=== PATIENT | male | born 1965 | race Caucasian/White ===

== ENCOUNTER 2016-12-23 13:02 | Inpatient (IN) | payer OTHER ==
[~2016-12-23] VITALS: Ht 167.6 cm; Wt 75.8 kg
[2016-12-23] VITALS (9 sets, daily range): BP systolic 132–176; BP diastolic 68–106; PULSE 78–101; RESP 14–18; O2SAT 93–98
[~2016-12-23 13:02] MED LIST: ATRV10T PO; IBUP-1827 PO; OMEP20CA11 PO; TRAZ-115 PO; VENL25TA4 PO
[2016-12-23] MEDS ORDERED: Multivit-Miner-Folic Acid-Iron Tablet PO SCH (13:35)
[2016-12-23] MEDS ORDERED: Multivitamin w/Vit K Inj 10 ML, Thiamine Inj 100 MG, Folic Acid Inj 1 MG, Magnesium Sul... IV ONE ×5 (14:19)
[2016-12-23] MEDS ORDERED: Ondansetron 2 mg/mL 2 mL Inj IVPUSH ONE (14:20)
--- NOTE | 2016-12-23 15:19 | ED.REPORT ---
HPI-Overdose/Alcohol Toxicity Date of Service Dec 23, 2016 ED Provider: Shyam Conroy MD 51 year old male with a history of alcoholism and withdrawal seizures presents to the ER due to alcohol withdrawal. Associated symptoms include shaking chills and visual hallucinations. He typically drinks about 750mL of hard alcohol daily. Last drink was 14-15 hours ago. Patient has been hospitalized for alcohol withdrawal in the past. Nursing Notes Stated Complaint: alcohol withdrawals Chief Complaint: Substance Abuse Nursing Notes Reviewed: Yes Allergies: Coded Allergies: latex (Verified Allergy, Unknown, 12/23/16) lisinopril (Verified Allergy, Unknown, 12/23/16) No Active Prescriptions or Reported Meds General Time Seen by Provider: 14:35 Chief Complaint Other (Alcohol Withdrawal) Hx Obtained From: Patient Arrived By: Walk-in Onset Occurred: Just prior to arrival Symptom Duration: Since onset Associated with: Reports: Sweating Additional Notes: Shaking chills Related History: Reports: Alcoholism, EtOH withdrawal Similar Sx Previous: Yes Risk-Overdose/Alcohol Tox )( Suicide Risk Stratification : Alcohol use RF Statements: Risk factors reviewed Past Medical History Past Medical History Notes: [facility] Past Medical History Shoulder fracture (left) [place] lesion (right) high cholesterol abdominal injuries denies history of stroke Reports: Hypertension Past Surgical History tracheotomy Family History family history of stroke Smoking History Never Smoker Social History Alcohol Use: >5 per day Ambulatory Status Independent Review of Systems Constitutional: Reports: Chills, Denies: Fever Respiratory: Denies: Non-productive cough, Shortness of breath Cardiovascular: Denies: Chest pain GI: Reports: Nausea, Denies: Constipation, Diarrhea, Hematemesis, Hematochezia Skin: Reports Diaphoresis Neurologic: Reports: Shaking Psychiatric: Reports: Hallucinations, visual Complete sys rev & neg: except as marked. Physical Exam Initial Vital Signs Vital Signs (First) Date Time Temp Pulse Resp B/P Pulse Ox O2 Delivery O2 Flow Rate FiO2 12/23/16 13:05 36.7 101 16 176/103 97 Room Air Initial VS: Reviewed Head / Eyes: Atraumatic, Normocephalic, PERRL Neck: Supple, Non-tender, Full range of motion Extremities: Vascular intact, Neuro intact, No swelling, No tenderness General/Constitutional: Awake, Alert, Well developed, Well nourished Respiratory / Chest: Atraumatic, Breath sounds NL, Breath sounds = bilat, No respiratory distress, No rales, No rhonchi, No wheezing Cardiovascular: Regular rhythm, Heart sounds NL, No murmurs Heart Rate / Rhythm: Positive: Tachycardia Neurologic: Oriented X3, Speech NL, No sensory deficits Fine tremor bilaterally. Psychiatric: Affect NL, Mood NL, Cognitive function NL, Thought content NL Interpretation & Diagnostics Lab Results Interpretation Result Diagram: 12/23/16 1331 12/23/16 1331 Test 12/23/16 13:31 White Blood Count 9.0th/mm3 (3.8-10.1) Red Blood Count 4.55mil/mm3 (4.40-5.80) Hemoglobin 13.9g/dL (13.8-17.2) Hematocrit 40.7% (41.0-50.0) Mean Corpuscular Volume 89.5fL (81-100) Mean Corpuscular Hemoglobin 30.5pg (27.0-35.0) Mean Corpuscular Hemoglobin Concent 34.2% (32.0-37.0) Red Cell Distribution Width 15.1% (12.3-15.4) Platelet Count 213bil/L (150-400) Neutrophils (%) (Auto) 77.3% (40-74) Lymphocytes (%) (Auto) 14.4% (14-46) Monocytes (%) (Auto) 7.9% (4-12) Eosinophils (%) (Auto) 0% (0-5) Basophils (%) (Auto) 0.3% (0-3) Hold Purple Top Tube Received (Received) Prothrombin Time 10.3sec (8.1-12.5) Prothromb Time International Ratio 0.96ratio Hold Blue Top Tube Received (Received) Sodium Level 138mEq/L (134-144) Potassium Level 3.7mEq/L (3.5-5.2) Chloride Level 93mEq/L (97-108) Carbon Dioxide Level 24mmol/L (18-29) Blood Urea Nitrogen 12mg/dL (6-24) Creatinine 0.71mg/dL (0.76-1.27) Estimat Glomerular Filtration Rate 123mL/min (>59) Glucose Level 149mg/dL (60-99) Calcium Level 8.9mg/dL (8.5-10.1) Total Bilirubin 1.5mg/dL (0.0-1.2) Aspartate Amino Transf (AST/SGOT) 61U/L (0-50) Alanine Aminotransferase (ALT/SGPT) 33U/L (0-44) Alkaline Phosphatase 73U/L (25-150) Total Protein 7.7g/dL (6.4-8.4) Albumin 4.7g/dL (3.4-5.0) Hold [place] Top Tube Received (Received) Hold [place] Top Tube Received (Received) Re-Eval/Medical Decision Med Decision/Clinical Course 51-year-old male along history of alcohol abuse presenting with alcohol control. Last drink 15 hours ago. Normally drinks 1/5 liquor per day. History of withdrawal seizures. Significantly tremulous on exam improved with 20 mg Valium. Admitted for alcohol withdrawal. Re-Evaluation/Progress : Time of Eval: 15:23 Re-Evaluation/Progress Note: Discussed need for admission. Patient is amenable to the plan. All other questions addressed. Code Status: Full Code Consultation : Referral / Consult Name: Holden Rae MD Consulted With: Hospitalist Call Returned at: 16:39 Finish Production Manager: Agrees with eval, Agrees with plan, Accepts admit Counseled Regarding: Diagnosis, Lab results, Need for admission Discharge & Departure Impression: Primary Impression: Alcohol withdrawal )( Condition at Discharge: No danger to self, No danger to others, No suicidal ideation, No homicidal ideation Disposition: ADMITTED TO HOSPITAL Discharge Condition All VS Reviewed: Yes Condition: Stable Referrals: [facility] (PCP) Aleisha Attestation Portions of this note were transcribed by Lenin Klein. I, Dr. Conroy, personally performed the history, physical exam and medical decision-making; I reviewed and confirmed the accuracy of the information in the transcribed note. Signed by: Aleisha Costello, 12/23/2016 and 16:47 copies to: [facility] Shyam Conroy MD Dec 23, 2016 15:19 LENIN KLEIN Dec 23, 2016 15:28
[2016-12-23 15:48] LABS: BASOPHILS % (AUTO) 0.3 % (0-3); EOSINOPHILS % (AUTO) 0 % (0-5); MONOCYTES % (AUTO) 7.9 % (4-12); Mean Corpuscular Hemoglobin 30.5 pg (27.0-35.0); Mean Corpuscular Volume 89.5 fL (81-100); NEUTROPHILS % (AUTO) 77.3 % (40-74); Platelet Count 213 bil/L (150-400)
[2016-12-23 15:50] LABS: INR 0.96 ratio
[2016-12-23] MEDS ORDERED: Alum-Mag Hydrox-Simeth 30 mL Suspension PO PRN ×2 (16:45→17:55)
[2016-12-23] MEDS ORDERED: Ondansetron 2 mg/mL 2 mL Inj IVPUSH PRN ×2 (16:45→17:55)
[2016-12-23] MEDS ORDERED: Polyethylene Glycol (PEG) 17 Gm Powder PO PRN (17:55)
--- NOTE | 2016-12-23 18:09 | PCM.HPMED ---
Subjective Date of Service Dec 23, 2016 Primary Provider: Admitting Physician: [facility]: Chief Complaint: Alcohol withdrawal History of Present Illness: Patient is a 51 year old male with a history of depression, PTSD, GERD, and alcohol use disorder. He presented to [facility] on [facility]16 with the desire to go through alcohol withdrawal. He reports that he drinks a fifth of rum daily. The current episode has been ongoing for three months. Prior to that he had been sober for one and a half years. His longest period of sobriety is 4 years. He does have a history of seizures with alcohol withdrawal. He would like to go through withdrawal at this time as he is preparing to have shoulder surgery done with Dr. Monsivais. He would like his recovery from surgery to go as smoothly as possible. The patient reports having had some cold/flu like symptoms over the last week including productive cough and nasal congestion. He reports periods of fever, chills and sweats. He endorses tremors/shakes, nausea, dry heaves and constipation. He denies diarrhea, dysuria, hematuria, shortness of breath or chest pain. In the ED the patient was afebrile with a heart rate of 101, respiratory rate of 16, blood pressure of 176/103, and O2 saturation of 97% on room air. labs were remarkable for bilirubin 1.5, AST of 61. He received diazepam, a banana bag, and thiamine in the ED. Patient to be admitted for management of alcohol withdrawal. Review of Systems: A comprehensive review of systems was conducted with the patient and found to be negative except as above in the history of present illness. Allergies Coded Allergies: latex (Verified Allergy, Unknown, 12/23/16) lisinopril (Verified Allergy, Unknown, 12/23/16) Home Medications Unable to correctly verify with patient: Atorvastatin 10 mg HS Ibuprofen 600 mg QID PRN Omeprazole 20 mg daily Trazodone 50 mg HS Venlafaxine 25 mg BID PMH Depression PTSD GERD History of pancreatitis secondary to trauma Surgical History Appendectomy Splenectomy secondary to trauma (1997) Abdominal trauma repair Family History Alcoholism on both sides of his family Father with coronary artery disease with stents placed x 4 Social History Hx Alcohol Use: Yes (1/5 of rum daily) Hx Substance Use: No Hx Tobacco Use: No Smoking Status: Never Smoker Exam Vital Signs Vital Sign - Last Date Time Temp Pulse Resp B/P Pulse Ox O2 Delivery O2 Flow Rate FiO2 12/23/16 17:15 88 17 137/81 94 Room Air 12/23/16 13:05 36.7 Exam Alert and oriented x3, no acute distress Head atraumatic, normocephalic PERRLA, EOMI, sclera anicteric Mucus membranes moist, no oral thrush observed No cervical lymphadenopathy, neck supple, nontender No JVD noted Cardiac tones regular rate and rhythm with no murmur appreciated Lungs clear to auscultation bilaterally with adequate respiratory effort Mild suprapubic abdominal tenderness, non-distended, normoactive bowel tones, soft Hurd absent Radial pulses normal and equivalent bilaterally, dorsalis pedis pulses normal and equivalent bilaterally No cyanosis, clubbing or edema No ulcerations/open wounds Cranial nerves appear to be fully intact, normal speech, patient can move upper and lower limbs grossly Lab and Diagnostics Result Diagram: 12/23/16 1331 12/23/16 1331 Assessment & Plan Patient is a 51 year old male with a history of depression, PTSD, GERD, and alcohol use disorder. He presented to [facility] on 12/23/16 with the desire to go through alcohol withdrawal. Patient admitted for management of alcohol withdrawal and monitoring for seizures. 1. Alcohol use disorder to undergo withdrawal, acute, present on admission. - CIWA protocol ordered. - Diazepam available IV push as needed based on CIWA score. - Thiamine ordered 100 mg daily. - Multivitamin ordered daily. - Seizure and fall precautions to be in place. 2. Abnormal LFT's, acute, present on admission. - Possibly secondary to alcoholic liver disease. - Will continue to follow BMP. 3. GERD, chronic, presume stable. - Continue PPI. 4. Depression/PTSD, chronic, presume stable. - Uncertain of his medication regimen. Needs to be verified with pharmacy. 5. Medication reconciliation: - Patient cannot verify doses of medication. Needs to be verified with PCP or pharmacy. - Antacid available PRN. - Antiemetic available PRN. - Bowel regimen available PRN. Patient admitted under inpatient status with expected length of stay greater than 2 midnights for severity of present symptoms, complexities of treatment plan and risk for adverse events. GI Prophylaxis: Proton Pump Inhibitor VTE Prophylaxis: Sub-Q Enoxaparin Resuscitation Status: CPR: Attempt Resuscitation Attending Statement The patient was seen and examined together with Dr. Landers on 12-23-16 and I agree with the history, exam and plan as outlined in the note above. copies to: Rachel Quijano MD, Jennifer E DO Dec 23, 2016 18:09 Sheyla Blank MD Dec 24, 2016 07:08
[2016-12-23] MEDS ORDERED: 0.9% Sodium Chloride 1,000 ML IV SCH (18:20)
[2016-12-23 20:13] LABS: APPEARANCE,URINE SLIGHTLY CLOUDY (CLEAR,HAZY); COLOR,URINE DARK YELLOW (YELLOW)
[2016-12-23 20:14] LABS: OCCULT BLOOD,URINE NEGATIVE (NEGATIVE); PH,URINE 8.5 (5.0-8.0); UROBILINOGEN,URINE NORMAL (NORMAL)
[2016-12-24] VITALS (7 sets, daily range): BP systolic 132–160; BP diastolic 87–103; PULSE 74–87; RESP 18; O2SAT 97–99
--- NOTE | 2016-12-24 06:30 | NUR ---
Admission note Pt arrived from ER to [id number] approx. at 195 as PCC status due to ETOH withdrawal management. Admission assessment and screening completed. VSS. CIWA score = 6. Valium given. No overt complications noted.
[2016-12-24 07:52] LABS: BASOPHILS % (AUTO) 0.4 % (0-3); EOSINOPHILS % (AUTO) 1.7 % (0-5); Mean Corpuscular Hemoglobin 31.4 pg (27.0-35.0); Mean Corpuscular Volume 91.4 fL (81-100); NEUTROPHILS % (AUTO) 57.6 % (40-74); Platelet Count 175 bil/L (150-400)
[2016-12-24] MEDS: Multivit-Miner-Folic Acid-Iron Tablet PO SCH (07:59)
[2016-12-24] MEDS: Pantoprazole 20 mg ER24 Tablet PO SCH (07:59)
[2016-12-24] MEDS: cloNIDine 0.1 mg Tablet PO SCH ×2 (09:58→21:40)
[2016-12-24] MEDS: chlordiazePOXIDE 25 mg Capsule PO SCH ×3 (09:58→21:40)
--- NOTE | 2016-12-24 13:16 | NUR ---
Social Work-screening/chemical dependency: Data:EMR reviewed. Pt is a 51 y/o male who was admitted on 12/23/16 for ETOH withdrawal per H&P. Pt's insurance is [employer] and PCP is He. Pt's readmission score is 3- high risk. SW met with pt at bedside to discuss discharge planning and discuss CD resources. Pt informs SW that he has been living the [facility] for a while on a voucher from [employer]. Pt states has been homeless for about a year. Pt states he has been enrolled in mental health and CD services through [employer] in the past and [employer] Manages his medications. Pt currently denies any suicidal thoughts or actions. Pt plans on returning back to the [facility] at discharge. SW discussed DPOA/ advanced directive with pt, pt states he would be interested in the paperwork and has not completed this before. SW provided pt with the information. SW discussed seeing CDP Sherin from [facility] and pt is agreeable, ABDOULAYE signed and placed in chart. SW called Sherin and left message requesting she meet with pt. SW provided phone number and plan on white board in room. SW will continue to follow. Assessment:Pt who is independent at baseline. Plan:Pt to discharge back to [facility] when medically stable via POV. Pt has signed ABDOULAYE to meet with Sherin from [facility]. SW will continue to follow. SHMUEL Virk
--- NOTE | 2016-12-24 13:59 | PCM.PNMED ---
Subjective Date of Service Dec 24, 2016 Subjective Patient apparently without reports of chest pain, dyspnea, nausea or vomiting I walked in and tried to wake the patient twice and he was somnolent Exam Vital Signs Vital Sign - Last Date Time Temp Pulse Resp B/P Pulse Ox O2 Delivery O2 Flow Rate FiO2 12/24/16 13:37 36.5 85 18 138/91 97 Room Air Intake and Output 12/23/16 12/23/16 12/24/16 Cumulative From/Thru 15:00 23:00 07:00 12/23/16 13:05 - 12/24/16 06:36 Intake Total 1000 ml 2000 ml 3000 ml Output Total 500 ml 500 ml Balance 1000 ml 1500 ml 2500 ml Intake Oral 1000 ml 1000 ml IV Total 1000 ml 1000 ml 2000 ml Output Urine Total 500 ml 500 ml Exam Gen.: Patient sleeping no acute distress Head: atraumatic, normocephalic Eyes : Closed, normal eyelids, no discharge noted Neck: Trachea midline Cardiac: Normal rate Lungs: Normal rate, no accessory muscle usage abd: Flat Musc- no deformity Skin: Warm/dry no lesions Neurologic :Cranial nerves intact to gross examination, nonfocal Psych: Patient sleeping Lab and Diagnostics Result Diagram: 12/24/1671412/24/16714 Assessment & Plan Patient is a 51 year old male with a history of depression, PTSD, GERD, and alcohol use disorder. He presented to [facility] on 12/23/16 with the desire to go through alcohol withdrawal so we can have shoulder surgery. Patient admitted for management of alcohol withdrawal and monitoring for seizures. #HTN-starting clonidine 12/24 #Eye drainage-reported by nurse I was not did not see any in patient did not rouse and I was unable to examine fully need follow-up #Alcohol use disorder to undergo withdrawal, acute, present on admission. - CIWA protocol ordered. - Diazepam available IV push as needed based on CIWA score. - Thiamine ordered 100 mg daily. - Multivitamin ordered daily. - Seizure and fall precautions to be in place. -Scheduled Librium ordered as patient got greater than 40 mg of diazepam between midnight and 8 AM and reportedly drinks a fifth of rum per day so significant withdrawal was expected. #Abnormal LFT's, acute, present on admission. - Possibly secondary to alcoholic liver disease. - Will continue to follow BMP. #GERD, chronic, presume stable. - Continue PPI. #Depression/PTSD, chronic, presume stable. - Uncertain of his medication regimen. Needs to be verified with pharmacy. #Medication reconciliation: - Patient cannot verify doses of medication. Needs to be verified with PCP or pharmacy. - Antacid available PRN. - Antiemetic available PRN. - Bowel regimen available PRN. Patient admitted under inpatient status with expected length of stay greater than 2 midnights for severity of present symptoms, complexities of treatment plan and risk for adverse events. GI Prophylaxis: Proton Pump Inhibitor VTE Prophylaxis: Sub-Q Enoxaparin Resuscitation Status: CPR: Attempt Resuscitation Emmanuel Kimble MD Dec 24, 2016 13:59
--- NOTE | 2016-12-24 17:32 | NUR ---
ETOH W/D management CIWA scores during shift ranging highest 11, average 4-5. patient reporting headache throughout day, mild tremors and periodic sweating. denies visual/auditory hallucinations. Scheduled Librium appears to be effective. patient somnolent most of the day, but is easily arousable with minimal verbal stimuli. during AM assessment patient c/o bilateral eye redness, itching, sticky feeling with discharge and mild crusting to lashes. warm compresses applied as needed throughout day. Dr Kimble notified. no new orders. continue to monitor.
--- NOTE | 2016-12-24 23:45 | NUR ---
Care Transferred CIWA score = 3. VSS. Pt stated Librium is really helping. No overt complications noted. Report given and care transferred to the receiving RN (Bubba Graves)
[2016-12-25] VITALS (8 sets, daily range): BP systolic 113–126; BP diastolic 66–87; PULSE 66–80; RESP 16–18; O2SAT 96
[2016-12-25] MEDS: cloNIDine 0.1 mg Tablet PO SCH ×2 (09:02→19:58)
[2016-12-25] MEDS: chlordiazePOXIDE 25 mg Capsule PO SCH ×3 (09:02→20:39)
[2016-12-25] MEDS: Pantoprazole 20 mg ER24 Tablet PO SCH (09:02)
[2016-12-25] MEDS: Multivit-Miner-Folic Acid-Iron Tablet PO SCH (09:02)
--- NOTE | 2016-12-25 18:15 | NUR ---
CIWA score CIWA score 2 all day today. Only complaints are feeling mildly sweaty, and a mild headache. Pt. has been pleasant and cooperative today. No other issues.
--- NOTE | 2016-12-25 22:42 | PCM.PNMED ---
Subjective Date of Service Dec 25, 2016 Subjective Notified by nursing overnight that [place] with patient earlier in the evening. Patient with intermittent suicidal ideation with plan in place to overdose on narcotics. Patient is not currently suicidal and is working with nursing to sign a no harm contract. Social work consult placed. AM team will need to discuss care with psychiatry prior to discharge. Exam Vital Signs Vital Sign - Last Date Time Temp Pulse Resp B/P Pulse Ox O2 Delivery O2 Flow Rate FiO2 12/25/16 20:37 36.4 80 16 121/83 96 Room Air Intake and Output 12/24/16 12/24/16 12/25/16 Cumulative From/Thru 15:00 23:00 07:00 12/23/16 13:05 - 12/25/16 06:35 Intake Total 2078 ml 1200 ml 6278 ml Output Total 600 ml 925 ml 2025 ml Balance 1478 ml 275 ml 4253 ml Intake Oral 1076 ml 1200 ml 3276 ml IV Total 1002 ml 3002 ml Output Urine Total 600 ml 925 ml 2025 ml # Bowel Movements 1 1 Lab and Diagnostics Result Diagram: 12/24/16 0715 12/24/16 0715 Assessment & Plan Intermittent suicidal ideation, acute -patient to sign no harm contract with nursing -social work consult ordered -no sitter at this time as patient is not actively suicidal -AM team to discuss further management with psychiatry prior to dispo Plan below unchanged and as per day time management team Patient is a 51 year old male with a history of depression, PTSD, GERD, and alcohol use disorder. He presented to [facility] on 12/23/16 with the desire to go through alcohol withdrawal so we can have shoulder surgery. Patient admitted for management of alcohol withdrawal and monitoring for seizures. #HTN-starting clonidine 12/24 #Eye drainage-reported by nurse I was not did not see any in patient did not rouse and I was unable to examine fully need follow-up #Alcohol use disorder to undergo withdrawal, acute, present on admission. - CIWA protocol ordered. - Diazepam available IV push as needed based on CIWA score. - Thiamine ordered 100 mg daily. - Multivitamin ordered daily. - Seizure and fall precautions to be in place. -Scheduled Librium ordered as patient got greater than 40 mg of diazepam between midnight and 8 AM and reportedly drinks a fifth of rum per day so significant withdrawal was expected. #Abnormal LFT's, acute, present on admission. - Possibly secondary to alcoholic liver disease. - Will continue to follow BMP. #GERD, chronic, presume stable. - Continue PPI. #Depression/PTSD, chronic, presume stable. - Uncertain of his medication regimen. Needs to be verified with pharmacy. #Medication reconciliation: - Patient cannot verify doses of medication. Needs to be verified with PCP or pharmacy. - Antacid available PRN. - Antiemetic available PRN. - Bowel regimen available PRN. Patient admitted under inpatient status with expected length of stay greater than 2 midnights for severity of present symptoms, complexities of treatment plan and risk for adverse events. GI Prophylaxis: Proton Pump Inhibitor VTE Prophylaxis: Sub-Q Enoxaparin Resuscitation Status: CPR: Attempt Resuscitation Phyllis Gonzalez DO Dec 25, 2016 22:42
[2016-12-25] MEDS: Artificial Tears 15 mL Ophthalmic Solution LEFT_EYE PRN (22:49)
--- NOTE | 2016-12-25 22:54 | NUR ---
Mentation Patient was in room, meeting with [facility] staff member. This staff member alerted our ORACLE PROGRAMMER ANALYST in the ED that patient reported intermittent suicidal thoughts, has a plan of overdosing, and "was getting his affairs in order". This RN spoke with patient who confirmed intermittent thoughts and plan. Suicidal risk score of 16, requiring Q15 minute checks. Patient denies current thoughts. Patient agreeably signed no-harm contract and agreed to alert staff of any suicidal thoughts. Night MD called with update, put in order for ORACLE PROGRAMMER ANALYST consultation. Did not relay this information to patient. Will frequently monitor. So far, patient has been pleasant, agreeable, and cooperative with staff. CIWA score of 3 for slight headache and mild anxiety at beginning of shift.
[2016-12-26] VITALS (9 sets, daily range): BP systolic 110–130; BP diastolic 72–86; PULSE 45–68; RESP 16–18; O2SAT 96–98
--- NOTE | 2016-12-26 00:02 | PCM.PNMED ---
Subjective Date of Service Dec 25, 2016 Subjective Patient states he is no longer suicidal. He does state that he suffers from PTSD and depression and was placed on Effexor and another medication that really "messed him up". He is feeling okay today with no new complaints. Exam Vital Signs Vital Sign - Last Date Time Temp Pulse Resp B/P Pulse Ox O2 Delivery O2 Flow Rate FiO2 12/25/16 20:37 36.4 80 16 121/83 96 Room Air Intake and Output 12/24/16 12/24/16 12/25/16 Cumulative From/Thru 15:00 23:00 07:00 12/23/16 13:05 - 12/25/16 06:35 Intake Total 2078 ml 1200 ml 6278 ml Output Total 600 ml 925 ml 2025 ml Balance 1478 ml 275 ml 4253 ml Intake Oral 1076 ml 1200 ml 3276 ml IV Total 1002 ml 3002 ml Output Urine Total 600 ml 925 ml 2025 ml # Bowel Movements 1 1 Exam General: Patient is in no apparent distress and shows no signs of agitation or withdrawal. HEENT: Head is atraumatic and normocephalic. Eyes: Pupils are equally round and reactive to light and accommodation. Extraocular muscles are intact. Sclera are white, anicteric. Subconjunctival mucosa is pink. Ears and nose are unremarkable. Oropharynx: There is no mucosal lesions, there is no thrush, there is no pharyngitis. Neck: Is supple, there are no nodes, or masses or tenderness. Chest: Is clear to auscultation and percussion. There are no rales, rhonchi, wheezes or rubs. Heart: Rate, rhythm is regular. There is no murmur, rub or gallop. Abdomen: Good bowel sounds are present. Abdomen is soft, nontender, no organomegaly or masses were appreciated. Extremities: Are symmetrical and well perfused. There is no edema, there is no cellulitis, no rash. Neurologic: There are no focal neurological deficits. Cranial nerves II through XII are intact. There are no sensory or motor deficits. Psychiatric: Patients mood is calm and shows no sign of agitation. Genital: Deferred Rectal: Deferred Lab and Diagnostics Result Diagram: 12/24/16 0715 12/24/1615 X-Rays, CTs and MRIs PROCEDURE: MRI SHOULDER RIGHT WITHOUT CONTRAST ([id number]) INDICATIONS: RIGHT SHOULDER RECURRENT DISLOCATION TECHNIQUE: Noncontrast oblique coronal T2 fast spin echo with fat saturation, oblique sagittal T1 spin echo and T2 fast spin echo with fat saturation, axial T1 spin echo and T2 fast spin echo with fat saturation through the shoulder. COMPARISON: Outside Film, CT, SHOULDER RT W/O CONTRAST, 12/06/2013, 11:26. Outside Film, CR, XR SHOULDER MIN 2VW RT, 05/22/2016, 10:32. FINDINGS: Image quality: There is motion artifact limiting evaluation. There is also magnetic susceptibly artifact in the anteroinferior glenoid associated with patient's surgical anchors. Rotator cuff: There is complete or near-complete tearing of the supraspinatus distally from its insertion or free traction of the tendon by approximately 1.7 cm. The infraspinatus demonstrates tendinopathy with moderate partial thickness articular surface tearing distally. There is also tendinopathy of the subscapularis with mild partial tearing distally. The teres minor is also intact. No rotator cuff muscle atrophy on sagittal images. Bones and bursae: No bone marrow contusions or acute fractures. There is a focal depression along the postero-superior humeral head consistent with a Hill- Sachs lesion. There is also deformity of the anteroinferior glenoid consistent with a bony Bankart lesion from prior fracture. There are postsurgical changes within the anteroinferior glenoid with magnetic susceptibly artifact from surgical anchors. There is mild to moderate acromioclavicular joint degeneration. The acromion demonstrates slight lateral downsloping, without an os acromiale. A small amount of subacromial-subdeltoid bursal fluid is present which communicates with the glenohumeral joint through the full-thickness rotator cuff tear. Capsule and soft tissues: In the absence of intra-articular contrast, the labrum and glenohumeral ligaments are incompletely evaluated. There are postsurgical changes in the anteroinferior glenoid as well as thickening of the anteroinferior labral ligamentous complex consistent with prior repair of the capsule. The remainder the labrum appears intact. The long head of the biceps tendon appears grossly intact with slight medial subluxation suggesting partial tearing of the distal subscapularis. IMPRESSION: 1. Bony Bankart and Hill-Sachs lesions consistent with prior anterior shoulder dislocation. 2. Postsurgical changes demonstrated in the anterior inferior glenoid consistent with prior capsular reconstruction with evaluation of the ligamentous complex limited in the absence of intra-articular contrast. 3. Complete or near complete tearing of the distal supraspinatus with tendinous retraction. Moderate partial thickness articular surface tearing also demonstrated in the distal infraspinatus as well as mild partial tearing in the distal subscapularis. 4. Mild/moderate acromioclavicular joint degeneration with slight lateral downsloping of the acromion. A small amount of subacromial/subdeltoid bursal fluid is demonstrated. Dictated by: Gideon Crocker M.D. on 12/23/2016 at 16:32 Approved by: Gideon Crocker M.D. on 12/23/2016 at 16:41 Assessment & Plan Patient is a 51 year old male with a history of depression, PTSD, GERD, and alcohol use disorder. He presented to [facility] on 12/23/16 with the desire to go through alcohol withdrawal so we can have shoulder surgery. Patient admitted for management of alcohol withdrawal and monitoring for seizures. # HTN-now controlled after starting clonidine on 12/24/16 # Eye drainage-this was present on admission is been going on for months. - One wonders if this is related to his psoriasis and psoriatic arthritis i.e. possible autoimmune phenomenon - We will consult ophthalmology # Alcohol use disorder to undergo withdrawal, acute, present on admission. - CIWA protocol ordered. - Diazepam available IV push as needed based on CIWA score. - Thiamine ordered 100 mg daily. - Multivitamin ordered daily. - Seizure and fall precautions to be in place. - Scheduled Librium ordered as patient got greater than 40 mg of diazepam between midnight and 8 AM and reportedly drinks a fifth of rum per day so significant withdrawal is expected. Patient wishes to detox. He does admit to having withdrawal seizures and delirium tremens in the past. # Abnormal LFT's, acute, present on admission. - Possibly secondary to alcoholic liver disease. - Will continue to follow BMP. # GERD, chronic, presume stable. - Continue PPI. # Depression/PTSD, chronic, presume stable. - Uncertain of his medication regimen. Needs to be verified with pharmacy. # Medication reconciliation: - Patient cannot verify doses of medication. Needs to be verified with PCP or pharmacy. - Antacid available PRN. - Antiemetic available PRN. - Bowel regimen available PRN. Disposition: It is expected the patient will be for another 4-5 days due to potential for extreme withdrawal and delirium tremens with possible seizure activity given his history. Patient wishes to continue to detox from alcohol and he has done so in the past. Pain Evaluation: Adequate Pain Control GI Prophylaxis: Proton Pump Inhibitor VTE Prophylaxis: Sub-Q Enoxaparin Resuscitation Status: CPR: Attempt Resuscitation [place] MD Dec 26, 2016 00:01
[2016-12-26 07:16] LABS: BASOPHILS % (AUTO) 0.1 % (0-3); EOSINOPHILS % (AUTO) 2.8 % (0-5); MONOCYTES % (AUTO) 11.9 % (4-12); Mean Corpuscular Hemoglobin 31.1 pg (27.0-35.0); Mean Corpuscular Volume 92.6 fL (81-100); NEUTROPHILS % (AUTO) 48.9 % (40-74); Platelet Count 133 bil/L (150-400)
[2016-12-26 07:40] LABS: Phosphorus 3.6 mg/dL (2.5-4.9)
[2016-12-26] MEDS: Multivit-Miner-Folic Acid-Iron Tablet PO SCH (08:17)
[2016-12-26] MEDS: Pantoprazole 20 mg ER24 Tablet PO SCH (08:17)
[2016-12-26] MEDS: chlordiazePOXIDE 25 mg Capsule PO SCH ×3 (08:17→21:11)
[2016-12-26] MEDS: cloNIDine 0.1 mg Tablet PO SCH ×2 (08:18→21:11)
[2016-12-26] MEDS ORDERED: Potassium Chloride 20 mEq SR Tablet PO ONE (08:25)
[2016-12-26] MEDS: Artificial Tears 15 mL Ophthalmic Solution LEFT_EYE PRN (11:25)
[2016-12-26] MEDS: PrednisoLONE 1% 5 mL Ophthalmic Suspension BOTH_EYES SCH ×2 (17:12→21:10)
--- NOTE | 2016-12-26 19:21 | NUR ---
CIWA Scores this shift 1-2-2. Patient reports a mild headache and mild anxiety. No tremor, nausea, hallucinations, responds appropriately.
--- NOTE | 2016-12-26 21:21 | PCM.PNMED ---
Subjective Date of Service Dec 26, 2016 Subjective Patient is still complaining of eye drainage and eyelids sticking together in the morning. He has had little if any withdrawal type symptoms. He would like to see a psychiatrist for his depression and posttraumatic stress disorder. Otherwise he has no new complaints. Exam Vital Signs Vital Sign - Last Date Time Temp Pulse Resp B/P Pulse Ox O2 Delivery O2 Flow Rate FiO2 12/26/16 17:14 63 12/26/16 14:25 36.5 18 115/75 98 Room Air Intake and Output 12/25/16 12/25/16 12/26/16 Cumulative From/Thru 14:59 22:59 06:59 12/23/16 13:05 - 12/26/16 01:14 Intake Total 30 ml 6308 ml Output Total 2025 ml Balance 30 ml 4283 ml Intake Oral 3276 ml IV Total 30 ml 3032 ml Output Urine Total 2025 ml # Bowel Movements 1 Exam General: Patient is in no apparent distress and shows no signs of agitation or withdrawal. HEENT: Head is atraumatic and normocephalic. Eyes: Pupils are equally round and reactive to light and accommodation. Extraocular muscles are intact. Sclera are lightly erythematous, anicteric. Subconjunctival mucosa is pink. Ears and nose are unremarkable. Oropharynx: There are no mucosal lesions, there is no thrush, there is no pharyngitis. Neck: Is supple, there are no nodes, or masses or tenderness. Chest: Is clear to auscultation and percussion. There are no rales, rhonchi, wheezes or rubs. Heart: Rate, rhythm is regular. There is no murmur, rub or gallop. Abdomen: Good bowel sounds are present. Abdomen is soft, nontender, no organomegaly or masses were appreciated. Extremities: Are symmetrical and well perfused. There is no edema, there is no cellulitis, no rash. Neurologic: There are no focal neurological deficits. Cranial nerves II through XII are intact. There are no sensory or motor deficits. Psychiatric: Patients mood is calm and he shows no sign of agitation. Genital: Deferred Rectal: Deferred Lab and Diagnostics Result Diagram: 12/26/16 0644 12/26/1644 X-Rays, CTs and MRIs PROCEDURE: MRI SHOULDER RIGHT WITHOUT CONTRAST ([id number]) INDICATIONS: RIGHT SHOULDER RECURRENT DISLOCATION TECHNIQUE: Noncontrast oblique coronal T2 fast spin echo with fat saturation, oblique sagittal T1 spin echo and T2 fast spin echo with fat saturation, axial T1 spin echo and T2 fast spin echo with fat saturation through the shoulder. COMPARISON: Outside Film, CT, SHOULDER RT W/O CONTRAST, 12/06/2013, 11:26. Outside Film, CR, XR SHOULDER MIN 2VW RT, 05/22/2016, 10:32. FINDINGS: Image quality: There is motion artifact limiting evaluation. There is also magnetic susceptibly artifact in the anteroinferior glenoid associated with patient's surgical anchors. Rotator cuff: There is complete or near-complete tearing of the supraspinatus distally from its insertion or free traction of the tendon by approximately 1.7 cm. The infraspinatus demonstrates tendinopathy with moderate partial thickness articular surface tearing distally. There is also tendinopathy of the subscapularis with mild partial tearing distally. The teres minor is also intact. No rotator cuff muscle atrophy on sagittal images. Bones and bursae: No bone marrow contusions or acute fractures. There is a focal depression along the postero-superior humeral head consistent with a Hill- Sachs lesion. There is also deformity of the anteroinferior glenoid consistent with a bony Bankart lesion from prior fracture. There are postsurgical changes within the anteroinferior glenoid with magnetic susceptibly artifact from surgical anchors. There is mild to moderate acromioclavicular joint degeneration. The acromion demonstrates slight lateral downsloping, without an os acromiale. A small amount of subacromial-subdeltoid bursal fluid is present which communicates with the glenohumeral joint through the full-thickness rotator cuff tear. Capsule and soft tissues: In the absence of intra-articular contrast, the labrum and glenohumeral ligaments are incompletely evaluated. There are postsurgical changes in the anteroinferior glenoid as well as thickening of the anteroinferior labral ligamentous complex consistent with prior repair of the capsule. The remainder the labrum appears intact. The long head of the biceps tendon appears grossly intact with slight medial subluxation suggesting partial tearing of the distal subscapularis. IMPRESSION: 1. Bony Bankart and Hill-Sachs lesions consistent with prior anterior shoulder dislocation. 2. Postsurgical changes demonstrated in the anterior inferior glenoid consistent with prior capsular reconstruction with evaluation of the ligamentous complex limited in the absence of intra-articular contrast. 3. Complete or near complete tearing of the distal supraspinatus with tendinous retraction. Moderate partial thickness articular surface tearing also demonstrated in the distal infraspinatus as well as mild partial tearing in the distal subscapularis. 4. Mild/moderate acromioclavicular joint degeneration with slight lateral downsloping of the acromion. A small amount of subacromial/subdeltoid bursal fluid is demonstrated. Dictated by: Gideon Crocker M.D. on 12/23/2016 at 16:32 Approved by: Gideon Crocker M.D. on 12/23/2016 at 16:41 Assessment & Plan Patient is a 51 year old male with a history of depression, PTSD, GERD, and alcohol use disorder. He presented to [facility] on 12/23/16 with the desire to go through alcohol withdrawal so we can have shoulder surgery. Patient admitted for management of alcohol withdrawal and monitoring for seizures. # HTN-now controlled after starting clonidine on 12/24/16 # Eye drainage-this was present on admission is been going on for months. - I suspect this is related to his psoriasis and psoriatic arthritis i.e. possible autoimmune phenomenon with a triad of psoriasis psoriatic arthritis and uveitis. Will check HLA B 27, sedimentation rate, and C-reactive protein. - I have consulted Dr. Amalia Rosas of ophthalmology who was kind enough to see the patient in consultation today and does believe that the patient has some early anterior uveitis both eyes and has prescribed some prednisone-based eyedrops. Her input is greatly appreciated will follow her recommendations. - Patient also has early bilateral cataracts and will need to have these addressed in the future to prevent blindness. # Alcohol use disorder to undergo withdrawal, acute, present on admission. Patient admits to drinking the night before admission. - CIWA protocol ordered. - Diazepam available IV push as needed based on CIWA score. - Thiamine ordered 100 mg daily. - Multivitamin ordered daily. - Seizure and fall precautions to be in place. - Scheduled Librium ordered as patient got greater than 40 mg of diazepam between midnight and 8 AM and reportedly drinks a fifth of rum per day so significant withdrawal is expected. Patient wishes to detox. He does admit to having withdrawal seizures and delirium tremens in the past. # Abnormal LFT's, acute, present on admission. - Possibly secondary to alcoholic liver disease. - Will continue to follow BMP. # GERD, chronic, presume stable. - Continue PPI. # Depression/PTSD, chronic, presume stable. - Uncertain of his medication regimen. Needs to be verified with pharmacy. - Consulted Dr. Brennan Kuhn of psychiatry who will see the patient either later this evening or tomorrow a.m. for help with his psychiatric medications. # Medication reconciliation: - Patient cannot verify doses of medication. Needs to be verified with PCP or pharmacy. - Antacid available PRN. - Antiemetic available PRN. - Bowel regimen available PRN. Disposition: It is expected the patient will be for another 4-5 days due to potential for extreme withdrawal and delirium tremens with possible seizure activity given his history. Patient wishes to continue to detox from alcohol and he has done so in the past. Pain Evaluation: Adequate Pain Control GI Prophylaxis: Proton Pump Inhibitor VTE Prophylaxis: Sub-Q Enoxaparin Resuscitation Status: CPR: Attempt Resuscitation [place] MD Dec 26, 2016 21:21
[2016-12-27] VITALS (9 sets, daily range): BP systolic 115–131; BP diastolic 74–86; PULSE 60–79; RESP 16–20; O2SAT 94–97
[2016-12-27 06:18] LABS: BASOPHILS % (AUTO) 0.2 % (0-3); EOSINOPHILS % (AUTO) 1.8 % (0-5); Mean Corpuscular Hemoglobin 31.4 pg (27.0-35.0); Mean Corpuscular Volume 92.1 fL (81-100); NEUTROPHILS % (AUTO) 58.3 % (40-74); Platelet Count 159 bil/L (150-400)
[2016-12-27] MEDS: Multivit-Miner-Folic Acid-Iron Tablet PO SCH (08:31)
[2016-12-27] MEDS: Pantoprazole 20 mg ER24 Tablet PO SCH (08:32)
[2016-12-27] MEDS: chlordiazePOXIDE 25 mg Capsule PO SCH ×3 (08:32→21:58)
[2016-12-27] MEDS: cloNIDine 0.1 mg Tablet PO SCH ×2 (08:32→21:57)
[2016-12-27] MEDS: PrednisoLONE 1% 5 mL Ophthalmic Suspension BOTH_EYES SCH ×3 (08:33→21:57)
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
--- NOTE | 2016-12-27 16:53 | NUR ---
CIWA Patient CIWA scores marginally improved this shift. 2-2-2. Patient reporting decreased anxiety after meeting with psychiatrist. Reports satisfaction with plan and medication recommendations. Patient reporting he forgot to request a change in sleeping medications. Hospitalist notified. Hospitalist reluctant to add another new medication to new regimen.
[2016-12-27] MEDS: BusPIRone 15 mg Dividose Tablet PO SCH (21:57)
--- NOTE | 2016-12-27 22:02 | PCM.PNMED ---
Subjective Date of Service Dec 27, 2016 Subjective Patient is feeling okay and having no signs of significant withdrawal at this time. He complained of some eye drainage and stickiness is morning but had improved since yesterday. He has no other new complaints. Exam Vital Signs Vital Sign - Last Date Time Temp Pulse Resp B/P Pulse Ox O2 Delivery O2 Flow Rate FiO2 12/27/16 20:55 36.7 79 20 124/80 96 Room Air Intake and Output 12/26/16 12/26/16 12/27/16 Cumulative From/Thru 15:00 23:00 07:00 12/23/16 13:05 - 12/27/16 07:00 Intake Total 700 ml 816 ml 1000 ml 8824 ml Output Total 1125 ml 1250 ml 1475 ml 5875 ml Balance -425 ml -434 ml -475 ml 2949 ml Intake Oral 700 ml 816 ml 1000 ml 5792 ml IV Total 3032 ml Output Urine Total 1125 ml 1250 ml 1475 ml 5875 ml # Bowel Movements 1 Exam General: Patient is in no apparent distress and shows no signs of agitation or withdrawal. HEENT: Head is atraumatic and normocephalic. Eyes: Pupils are equally round and reactive to light and accommodation. Extraocular muscles are intact. Sclera are less erythematous, anicteric. Subconjunctival mucosa is pink. Ears and nose are unremarkable. Oropharynx: There are no mucosal lesions, there is no thrush, there is no pharyngitis. Neck: Is supple, there are no nodes, or masses or tenderness. Chest: Is clear to auscultation and percussion. There are no rales, rhonchi, wheezes or rubs. Heart: Rate, rhythm is regular. There is no murmur, rub or gallop. Abdomen: Good bowel sounds are present. Abdomen is soft, nontender, no organomegaly or masses were appreciated. Extremities: Are symmetrical and well perfused. There is no edema, there is no cellulitis, no rash. Neurologic: There are no focal neurological deficits. Cranial nerves II through XII are intact. There are no sensory or motor deficits. Psychiatric: Patients mood is calm and he shows no sign of agitation. Genital: Deferred Rectal: Deferred Lab and Diagnostics Result Diagram: 12/27/16 0550 12/27/16 0550 X-Rays, CTs and MRIs PROCEDURE: MRI SHOULDER RIGHT WITHOUT CONTRAST ([id number]) INDICATIONS: RIGHT SHOULDER RECURRENT DISLOCATION TECHNIQUE: Noncontrast oblique coronal T2 fast spin echo with fat saturation, oblique sagittal T1 spin echo and T2 fast spin echo with fat saturation, axial T1 spin echo and T2 fast spin echo with fat saturation through the shoulder. COMPARISON: Outside Film, CT, SHOULDER RT W/O CONTRAST, 12/06/2013, 11:26. Outside Film, CR, XR SHOULDER MIN 2VW RT, 05/22/2016, 10:32. FINDINGS: Image quality: There is motion artifact limiting evaluation. There is also magnetic susceptibly artifact in the anteroinferior glenoid associated with patient's surgical anchors. Rotator cuff: There is complete or near-complete tearing of the supraspinatus distally from its insertion or free traction of the tendon by approximately 1.7 cm. The infraspinatus demonstrates tendinopathy with moderate partial thickness articular surface tearing distally. There is also tendinopathy of the subscapularis with mild partial tearing distally. The teres minor is also intact. No rotator cuff muscle atrophy on sagittal images. Bones and bursae: No bone marrow contusions or acute fractures. There is a focal depression along the postero-superior humeral head consistent with a Hill- Sachs lesion. There is also deformity of the anteroinferior glenoid consistent with a bony Bankart lesion from prior fracture. There are postsurgical changes within the anteroinferior glenoid with magnetic susceptibly artifact from surgical anchors. There is mild to moderate acromioclavicular joint degeneration. The acromion demonstrates slight lateral downsloping, without an os acromiale. A small amount of subacromial-subdeltoid bursal fluid is present which communicates with the glenohumeral joint through the full-thickness rotator cuff tear. Capsule and soft tissues: In the absence of intra-articular contrast, the labrum and glenohumeral ligaments are incompletely evaluated. There are postsurgical changes in the anteroinferior glenoid as well as thickening of the anteroinferior labral ligamentous complex consistent with prior repair of the capsule. The remainder the labrum appears intact. The long head of the biceps tendon appears grossly intact with slight medial subluxation suggesting partial tearing of the distal subscapularis. IMPRESSION: 1. Bony Bankart and Hill-Sachs lesions consistent with prior anterior shoulder dislocation. 2. Postsurgical changes demonstrated in the anterior inferior glenoid consistent with prior capsular reconstruction with evaluation of the ligamentous complex limited in the absence of intra-articular contrast. 3. Complete or near complete tearing of the distal supraspinatus with tendinous retraction. Moderate partial thickness articular surface tearing also demonstrated in the distal infraspinatus as well as mild partial tearing in the distal subscapularis. 4. Mild/moderate acromioclavicular joint degeneration with slight lateral downsloping of the acromion. A small amount of subacromial/subdeltoid bursal fluid is demonstrated. Dictated by: Gideon Crocker M.D. on 12/23/2016 at 16:32 Approved by: Gideon Crocker M.D. on 12/23/2016 at 16:41 Assessment & Plan Patient is a 51 year old male with a history of depression, PTSD, GERD, and alcohol use disorder. He presented to [facility] on 12/23/16 with the desire to go through alcohol withdrawal so we can have shoulder surgery. Patient admitted for management of alcohol withdrawal and monitoring for seizures. # HTN-now controlled after starting clonidine on 12/24/16 # Eye drainage-this was present on admission is been going on for months. - I suspect this is related to his psoriasis and psoriatic arthritis i.e. possible autoimmune phenomenon with a triad of psoriasis psoriatic arthritis and uveitis. Will check HLA B 27, sedimentation rate, and C-reactive protein. - I have consulted Dr. Amalia Rosas of ophthalmology who was kind enough to see the patient in consultation today and does believe that the patient has some early anterior uveitis both eyes and has prescribed some prednisone-based eyedrops. Her input is greatly appreciated will follow her recommendations. - Patient also has early bilateral cataracts and will need to have these addressed in the future to prevent blindness. # Alcohol use disorder to undergo withdrawal, acute, present on admission. Patient admits to drinking the night before admission. - CIWA protocol ordered. - Diazepam available IV push as needed based on CIWA score. - Thiamine ordered 100 mg daily. - Multivitamin ordered daily. - Seizure and fall precautions to be in place. - Scheduled Librium ordered as patient got greater than 40 mg of diazepam between midnight and 8 AM and reportedly drinks a fifth of rum per day so significant withdrawal is expected. Patient wishes to detox. He does admit to having withdrawal seizures and delirium tremens in the past. # Abnormal LFT's, acute, present on admission. - Possibly secondary to alcoholic liver disease. - Will continue to follow BMP. # GERD, chronic, presume stable. - Continue PPI. # Depression/PTSD, chronic, presume stable. - Uncertain of his medication regimen. Needs to be verified with pharmacy. - Consulted Dr. Brennan Kuhn of psychiatry who has seen the patient and his diagnosis and recommendations are as follows: "DIAGNOSIS: Alpha I. 1. Depression, unspecified. 2. Posttraumatic stress disorder. 3. Rule out major depression. 4. Rule out depression secondary to posttraumatic stress disorder. 5. Rule out depression secondary to alcohol abuse. 6. Alcohol abuse, severe. Alpha II. Defer. Alpha III. 1. Alcohol dependence and withdrawal. 2. Shoulder injury. 3. Gastroesophageal reflux disease. Alpha IV. Moderate. Alpha V. Current Global Assessment of Functioning equal to 45. PLAN: Recommend client refrain from recreational drugs and alcohol for the next 90 days. Recommend he attend 90 AA meetings in 90 days or go to an inpatient rehab through the [facility]. Recommend he start Cymbalta 20 mg daily, BuSpar 10 mg b.i.d., and prazosin 1 mg h.s. for nightmares. Client is okay for discharge and would recommend followup through the [facility]." - Antacid available PRN. - Antiemetic available PRN. - Bowel regimen available PRN. Disposition: It is expected the patient will be for another 24 hours due to potential for extreme withdrawal and delirium tremens with possible seizure activity given his history. Patient wishes to continue to detox from alcohol and he has done so in the past. Pain Evaluation: Adequate Pain Control GI Prophylaxis: Proton Pump Inhibitor VTE Prophylaxis: Sub-Q Enoxaparin Resuscitation Status: CPR: Attempt Resuscitation [place],Regan Jones MD Dec 27, 2016 22:02
[2016-12-28 00:35] VITALS: BP 108/73; PULSE 76; RESP 20; O2SAT 97
[2016-12-28 04:51] VITALS: BP 122/74; PULSE 76; RESP 20; O2SAT 96
--- NOTE | 2016-12-28 05:21 | NUR ---
CIWA Pt's CIWA scores 1 this shift. Pt c/o headache pain 11/21, medicated pt with ibuprofen, will continue to monitor pt for pain. Call light within reach, frequent rounding.
[2016-12-28 05:29] VITALS: PULSE 71
[2016-12-28 06:26] LABS: BASOPHILS % (AUTO) 0.3 % (0-3); EOSINOPHILS % (AUTO) 2.1 % (0-5); Mean Corpuscular Hemoglobin 30.6 pg (27.0-35.0); Mean Corpuscular Volume 91.9 fL (81-100); NEUTROPHILS % (AUTO) 37.6 % (40-74); Platelet Count 166 bil/L (150-400)
[2016-12-28] MEDS: BusPIRone 15 mg Dividose Tablet PO SCH (08:18)
[2016-12-28] MEDS: cloNIDine 0.1 mg Tablet PO SCH (08:18)
[2016-12-28] MEDS: chlordiazePOXIDE 25 mg Capsule PO SCH ×2 (08:18→14:22)
[2016-12-28] MEDS: Multivit-Miner-Folic Acid-Iron Tablet PO SCH (08:18)
[2016-12-28] MEDS: PrednisoLONE 1% 5 mL Ophthalmic Suspension BOTH_EYES SCH ×2 (08:19→14:31)
[2016-12-28] MEDS: Pantoprazole 20 mg ER24 Tablet PO SCH (08:19)
[2016-12-28] MEDS ORDERED: DULoxetine 20 mg DR Capsule PO SCH (08:30)
[2016-12-28 09:48] VITALS: BP 129/89; PULSE 91; RESP 18; O2SAT 95
[2016-12-28 10:07] VITALS: PULSE 77
--- NOTE | 2016-12-28 11:42 | NUR ---
Social Work: Readiness for d/c Data: Pt is on day 5 of hospitalization. EMR reviewed. Pt discussed in rounds. MD states that pt is likely ready for d/c today. CERTIFIED PHYSICIAN'S ASSISTANT met with pt at bedside to discuss D/C. Pt states he plans to go home today and clean out his hotel bedroom and then request another hotel voucher from [employer]. Pt states he has been talking with CDP from [place] and they have each others contact information to coordinate follow up and possible bed in inpt rehab for CD. Pt states no further questions or needs at this time. CERTIFIED PHYSICIAN'S ASSISTANT will continue to follow if needs arise. Assessment: Pt who is independent at baseline. Plan: Pt will d/c back to hotel room today, follow up with [place] [facility] for possible inpt rehab for CD. Pt states no further questions or needs at this time. CERTIFIED PHYSICIAN'S ASSISTANT will continue to follow if needs arise. SHMUEL Rojo
--- NOTE | 2016-12-28 14:55 | NUR ---
CIWA & mental status Pt has had CIWA 1 today for mild COMBS, and pt states he has no suicidal, self-harm, or thoughts of violence toward others. Pt has been pleasant and cooperative, and is looking forward to discharge today.
--- NOTE | 2016-12-28 15:33 | PCM.DIMED ---
Discharge Instructions Date of Service Dec 28, 2016 Dates of Hospitalization Dec 23, 2016 at 19:34 Discharge Diagnosis Discharge Diagnosis Alcoholism with treatment for withdrawal during detoxifiation Diet Heart Healthy Activity No restrictions (Patient may return to usual activities gradually as tolerated) Call your provider Fever or Chills, Shortness of breath, Bleeding, Chest pain, Vomitting, Excessive diarrhea, Weakness (unilateral), Other Patient Instructions Follow-up Provider: Rachel Quijano MD Follow-up with PCP in: 1 week Regan Boyle MD Dec 28, 2016 15:33
[2016-12-28] MEDS ORDERED: PRAZ1CAP PO (15:36)
[2016-12-28] MEDS ORDERED: Thiamine PO (15:36)
[2016-12-28] MEDS ORDERED: CLON0.1T14 PO (15:36)
[2016-12-28] MEDS ORDERED: BUSP15TA3 PO (15:36)
[2016-12-28] MEDS ORDERED: PREN1TAB25 PO (15:36)
[2016-12-28] MEDS ORDERED: PRED5DRO6 BOTH_EYES (15:36)
[2016-12-28] MEDS ORDERED: DULO20CA PO (15:36)
[2016-12-28] MEDS ORDERED: Artificial Tears LEFT_EYE (15:36)
--- NOTE | 2016-12-28 16:38 | NUR ---
Discharge Reviewed d/c instructions with pt including care notes and new prescriptions, pt signed and given originals, copies to chart. IV d/c intact, tele removed. VS stable at d/c. All belongings collected by pt in room and taken with him, he is driving himself home. Pt's valuables retrieved by DIAGNOSTIC RADIOLOGIC TECHNOLOGIST from safe in ED and given to pt, pt signed paperwork verifying he received valuables, copies in chart. Pt walked off unit on own to drive himself home.
--- NOTE | 2016-12-28 23:41 | PCM.DC.MED ---
Discharge Summary Date of Service Dec 28, 2016 Dates of Hospitalization Date of Hospital Admission Dec 23, 2016 at 19:34 Date of Discharge: Dec 28, 2016 Providers: Admitting Physician: Sheyla Blank MD [facility] Attending Physician: Sheyla Blank MD Diagnosis at Time of Discharge Diagnosis at Time of Discharge Alcoholism with treatment for withdrawal during detoxifiation Consultations Dr. Amalia Rosas of ophthalmology Procedures XRay, CTs & MRIs PROCEDURE: MRI SHOULDER RIGHT WITHOUT CONTRAST ([id number]) INDICATIONS: RIGHT SHOULDER RECURRENT DISLOCATION TECHNIQUE: Noncontrast oblique coronal T2 fast spin echo with fat saturation, oblique sagittal T1 spin echo and T2 fast spin echo with fat saturation, axial T1 spin echo and T2 fast spin echo with fat saturation through the shoulder. COMPARISON: Outside Film, CT, SHOULDER RT W/O CONTRAST, 12/06/2013, 11:26. Outside Film, CR, XR SHOULDER MIN 2VW RT, 05/22/2016, 10:32. FINDINGS: Image quality: There is motion artifact limiting evaluation. There is also magnetic susceptibly artifact in the anteroinferior glenoid associated with patient's surgical anchors. Rotator cuff: There is complete or near-complete tearing of the supraspinatus distally from its insertion or free traction of the tendon by approximately 1.7 cm. The infraspinatus demonstrates tendinopathy with moderate partial thickness articular surface tearing distally. There is also tendinopathy of the subscapularis with mild partial tearing distally. The teres minor is also intact. No rotator cuff muscle atrophy on sagittal images. Bones and bursae: No bone marrow contusions or acute fractures. There is a focal depression along the postero-superior humeral head consistent with a Hill- Sachs lesion. There is also deformity of the anteroinferior glenoid consistent with a bony Bankart lesion from prior fracture. There are postsurgical changes within the anteroinferior glenoid with magnetic susceptibly artifact from surgical anchors. There is mild to moderate acromioclavicular joint degeneration. The acromion demonstrates slight lateral downsloping, without an os acromiale. A small amount of subacromial-subdeltoid bursal fluid is present which communicates with the glenohumeral joint through the full-thickness rotator cuff tear. Capsule and soft tissues: In the absence of intra-articular contrast, the labrum and glenohumeral ligaments are incompletely evaluated. There are postsurgical changes in the anteroinferior glenoid as well as thickening of the anteroinferior labral ligamentous complex consistent with prior repair of the capsule. The remainder the labrum appears intact. The long head of the biceps tendon appears grossly intact with slight medial subluxation suggesting partial tearing of the distal subscapularis. IMPRESSION: 1. Bony Bankart and Hill-Sachs lesions consistent with prior anterior shoulder dislocation. 2. Postsurgical changes demonstrated in the anterior inferior glenoid consistent with prior capsular reconstruction with evaluation of the ligamentous complex limited in the absence of intra-articular contrast. 3. Complete or near complete tearing of the distal supraspinatus with tendinous retraction. Moderate partial thickness articular surface tearing also demonstrated in the distal infraspinatus as well as mild partial tearing in the distal subscapularis. 4. Mild/moderate acromioclavicular joint degeneration with slight lateral downsloping of the acromion. A small amount of subacromial/subdeltoid bursal fluid is demonstrated. Dictated by: Gideon Crocker M.D. on 12/23/2016 at 16:32 Approved by: Gideon Crocker M.D. on 12/23/2016 at 16:41 Brief History Patient is a 51 year old male with a history of depression, PTSD, GERD, and alcohol use disorder. He presented to [facility] on 12/23/16 with the desire to go through alcohol withdrawal. He reports that he drinks a fifth of rum daily. The current episode has been ongoing for three months. Prior to that he had been sober for one and a half years. His longest period of sobriety is 4 years. He does have a history of seizures with alcohol withdrawal. He would like to go through withdrawal at this time as he is preparing to have shoulder surgery done with Dr. Monsivais. He would like his recovery from surgery to go as smoothly as possible. The patient reports having had some cold/flu like symptoms over the last week including productive cough and nasal congestion. He reports periods of fever, chills and sweats. He endorses tremors/shakes, nausea, dry heaves and constipation. He denies diarrhea, dysuria, hematuria, shortness of breath or chest pain. In the ED the patient was afebrile with a heart rate of 101, respiratory rate of 16, blood pressure of 176/103, and O2 saturation of 97% on room air. labs were remarkable for bilirubin 1.5, AST of 61. He received diazepam, a banana bag, and thiamine in the ED. Patient was admitted to the hospital service for management of alcohol withdrawal. Hospital Course Patient is a 51 year old male with a history of depression, PTSD, GERD, and alcohol use disorder. He presented to [facility] on 12/23/16 with the desire to go through alcohol withdrawal so we can have shoulder surgery. Patient admitted for management of alcohol withdrawal and monitoring for seizures. # HTN-now controlled after starting clonidine on 12/24/16 # Eye drainage-this was present on admission is been going on for months. - I suspect this is related to his psoriasis and psoriatic arthritis i.e. possible autoimmune phenomenon with a triad of psoriasis psoriatic arthritis and uveitis. Will check HLA B 27 which is still pending., sedimentation rate, and C-reactive protein. - I have consulted Dr. Amalia Rosas of ophthalmology who was kind enough to see the patient in consultation today and does believe that the patient has some early anterior uveitis both eyes and has prescribed some prednisone-based eyedrops. Her input is greatly appreciated will follow her recommendations. - Patient also has early bilateral cataracts and will need to have these addressed in the future to prevent blindness. # Alcohol use disorder to undergo withdrawal, acute, present on admission. Patient admits to drinking the night before admission. - CIWA protocol ordered and followed. - Diazepam available IV push as needed based on CIWA score. - Thiamine ordered 100 mg daily. - Multivitamin ordered daily. - Seizure and fall precautions to be in place. - Scheduled Librium ordered as patient got greater than 40 mg of diazepam between midnight and 8 AM and reportedly drinks a fifth of rum per day so significant withdrawal is expected. Patient wishes to detox. He does admit to having withdrawal seizures and delirium tremens in the past. # Abnormal LFT's, acute, present on admission. - Possibly secondary to alcoholic liver disease. - Will continue to follow BMP. # GERD, chronic, presume stable. - Continue PPI. # Depression/PTSD, chronic, presume stable. - Uncertain of his medication regimen. Needs to be verified with pharmacy. - Consulted Dr. Brennan Kuhn of psychiatry who has seen the patient and his diagnosis and recommendations are as follows: "DIAGNOSIS: Mora I. 1. Depression, unspecified. 2. Posttraumatic stress disorder. 3. Rule out major depression. 4. Rule out depression secondary to posttraumatic stress disorder. 5. Rule out depression secondary to alcohol abuse. 6. Alcohol abuse, severe. Mora II. Defer. Mora III. 1. Alcohol dependence and withdrawal. 2. Shoulder injury. 3. Gastroesophageal reflux disease. Mora IV. Moderate. Mora V. Current Global Assessment of Functioning equal to 45. PLAN: Recommend client refrain from recreational drugs and alcohol for the next 90 days. Recommend he attend 90 AA meetings in 90 days or go to an inpatient rehab through the [place]. Recommend he start Cymbalta 20 mg daily, BuSpar 10 mg b.i.d., and prazosin 1 mg h.s. for nightmares. Client is okay for discharge and would recommend followup through the [place]." - Antacid available PRN. - Antiemetic available PRN. - Bowel regimen available PRN. Disposition: Patient would like to leave the hospital today as he is having to move out of his hotel room by tomorrow and he appears quite stable and should do just fine as an outpatient. Patient is to be discharged home today. Exam Vital Signs (Last) Date Time Temp Pulse Resp B/P Pulse Ox O2 Delivery O2 Flow Rate FiO2 12/28/16 10:07 77 12/28/16 09:48 36.6 18 129/89 95 Room Air Exam General: Patient is in no apparent distress and shows no signs of agitation or withdrawal. HEENT: Head is atraumatic and normocephalic. Eyes: Pupils are equally round and reactive to light and accommodation. Extraocular muscles are intact. Sclera are lightly erythematous, anicteric. Subconjunctival mucosa is pink. Ears and nose are unremarkable. Oropharynx: There are no mucosal lesions, there is no thrush, there is no pharyngitis. Neck: Is supple, there are no nodes, or masses or tenderness. Chest: Is clear to auscultation and percussion. There are no rales, rhonchi, wheezes or rubs. Heart: Rate, rhythm is regular. There is no murmur, rub or gallop. Abdomen: Good bowel sounds are present. Abdomen is soft, nontender, no organomegaly or masses were appreciated. Extremities: Are symmetrical and well perfused. There is no edema, there is no cellulitis, no rash. Neurologic: There are no focal neurological deficits. Cranial nerves II through XII are intact. There are no sensory or motor deficits. Psychiatric: Patients mood is calm and he shows no sign of agitation. Genital: Deferred Rectal: Deferred Test 12/23/16 13:31 12/23/16 19:51 12/26/16 06:44 12/27/16 05:05 Hold Purple Top Tube Received (Received) Prothrombin Time 10.3sec (8.1-12.5) Prothromb Time International Ratio 0.96ratio Hold Blue Top Tube Received (Received) Hold Fellows Top Tube Received (Received) Hold Humphrey Top Tube Received (Received) Urine Color Dark yellow (YELLOW) Urine Appearance Slightly cloudy Urine pH 8.5 (5.0-8.0) Urine Specific [place] 1.015 (1.003-1.035) Urine Protein Negativemg/dL (NEG,TRACE) Urine Glucose (UA) Negativemg/dL (NEGATIVE) Urine Ketones 15mg/dL (NEGATIVE) Urine Occult Blood Negative (NEGATIVE) Urine Nitrite Negative (NEGATIVE) Urine Bilirubin Negative (NEGATIVE) Urine Urobilinogen Normalmg/dL (NORMAL) Urine Leukocyte Esterase Negative (NEGATIVE) Urine RBC 0-2/hpf (0-2) Urine WBC 0-5/hpf (0-5) Urine Epithelial Cells Occasional/hpf (NONE-MOD) Urine Crystals Amorphous urates (NONE Urine Bacteria Few/hpf (NONE-FEW) Urine Hyaline Casts None/lpf (NONE) Urine Granular Casts None seen (NONE SEEN) Urine Waxy Casts None seen (NONE SEEN) Urine Red Blood Cell Casts None seen (NONE SEEN) Urine White Blood Cell Casts None seen (NONE SEEN) Urine Mucus None seen (None Seen) Urine Trichomonas None seen (NONE SEEN) Urine Yeast None (NONE SEEN) Urinalysis Comment None Urine Culture Reflexed Not indicated Phosphorus Level 3.6mg/dL (2.5-4.9) Magnesium Level 2.0mg/dL (1.6-2.6) Erythrocyte Sedimentation Rate 8mm/hr (0-30) C-Reactive Protein 0.3mg/dL (0.0-0.5) Test 12/27/16 09:35 12/28/16 05:55 White Blood Count 6.7th/mm3 (3.8-10.1) Red Blood Count 4.47mil/mm3 (4.40-5.80) Hemoglobin 13.7g/dL (13.8-17.2) Hematocrit 41.1% (41.0-50.0) Mean Corpuscular Volume 91.9fL (81-100) Mean Corpuscular Hemoglobin 30.6pg (27.0-35.0) Mean Corpuscular Hemoglobin Concent 33.3% (32.0-37.0) Red Cell Distribution Width 14.9% (12.3-15.4) Platelet Count 166bil/L (150-400) Neutrophils (%) (Auto) 37.6% (40-74) Lymphocytes (%) (Auto) 41.8% (14-46) Monocytes (%) (Auto) 18.0% (4-12) Eosinophils (%) (Auto) 2.1% (0-5) Basophils (%) (Auto) 0.3% (0-3) Sodium Level 140mEq/L (134-144) Potassium Level 4.1mEq/L (3.5-5.2) Chloride Level 102mEq/L (97-108) Carbon Dioxide Level 23mmol/L (18-29) Blood Urea Nitrogen 11mg/dL (6-24) Creatinine 0.75mg/dL (0.76-1.27) Estimat Glomerular Filtration Rate 116mL/min (>59) Glucose Level 90mg/dL (60-99) Calcium Level 9.3mg/dL (8.5-10.1) Total Bilirubin 0.2mg/dL (0.0-1.2) Aspartate Amino Transf (AST/SGOT) 41U/L (0-50) Alanine Aminotransferase (ALT/SGPT) 39U/L (0-44) Alkaline Phosphatase 73U/L (25-150) Total Protein 6.6g/dL (6.4-8.4) Albumin 4.0g/dL (3.4-5.0) Discharge Medications Discharge Medications ([Thiamine]) 100 MG TABLET 100 MG PO DAILY Prescribed by: JEAN LINO MD Buspirone (Buspirone) 15 Mg Tablet 10 MG PO BID Prescribed by: JEAN LINO MD Clonidine (Catapres) 0.1 Mg Tablet 0.1 MG PO BID Prescribed by: JEAN LINO MD Duloxetine (Cymbalta) 20 Mg Capsule 20 MG PO DAILY Prescribed by: JEAN LINO MD Prazosin (Minipress) 1 Mg Capsule 1 MG PO HS Prescribed by: JEAN LINO MD Prednisolone Acetate (Prednisolone Acetate) 5 Ml Drops.susp 1 DROP BOTH_EYES TID Prescribed by: JEAN LINO MD Vit#96/Ferrous Fum/FA ( Tablet) 1 Each Tablet 1 TABLET PO DAILY Prescribed by: JEAN LINO MD As needed ([Artificial Tears]) 15 DROP/ML SOLUTION 1-2 DROP LEFT_EYE Q2H PRN PRN For Eye Irritation Prescribed by: JEAN LINO MD Followup Plan Disposition: Patient is being discharged home to his hotel room. Discharge Diet: Heart Healthy Discharge Activity: No restrictions (Patient may return to usual activities gradually as tolerated) Follow-up Provider: Rachel Quijano MD Follow-up with PCP in: 1 week Time spent Time spent on discharging this patient was greater than 35 minutes, over half of which was involved in counseling and coordination of care. Regan Lino MD Dec 28, 2016 23:41
== END 2016-12-28 16:36 | disposition home or self-care (01) | DRG 897 ==
LOC: SED 13:02 → MPC 19:34
PROVIDERS: ADMIT Hospitalist; ATTEND Hospitalist
DX: F10.239 Alcohol dependence with withdrawal, unspecified (principal); R45.851 Suicidal ideations; I10 Essential (primary) hypertension; K21.9 Gastro-esophageal reflux disease without esophagitis; F43.10 Post-traumatic stress disorder, unspecified; F32.9 Major depressive disorder, single episode, unspecified; L40.50 Arthropathic psoriasis, unspecified